=== PATIENT | male | born 1980 | race Caucasian/White ===

== ENCOUNTER 2019-01-04 09:30 | Emergency (ER) | payer OTHER ==
[2019-01-04 09:37] VITALS: BP 134/84
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
== END 2019-01-04 10:35 | disposition home or self-care (01) ==
LOC: ER 09:30
DX: M25.562 Pain in left knee (principal); M25.462 Effusion, left knee; V68.5XXA Driver of heavy transport vehicle injured in noncollision transport accident in traffic accident, initial encounter; X50.0XXA Overexertion from strenuous movement or load, initial encounter; Y93.39 Activity, other involving climbing, rappelling and jumping off
CPT/HCPCS: 99283; 73564; L1830